=== PATIENT | female | born 1995 ===

== ENCOUNTER 2018-07-04 14:32 | Inpatient (IN) | payer OTHER ==
[2018-07-04 14:32] VITALS: BMI 29.1
--- NOTE | 2018-07-04 15:36 | C.PDOC ---
History Of Present Illness 22 y/o female brought by rapid response team stating patient had 2 seizures in the clinic. As per mother, patient had a cold, fever, chills, and cough 4 days ago. Mother states they were going to the clinic for a headache this morning when patient had the seizures. Reports that patient has an 8 year history of possible epilepsy and seizures, and has 3 seizures per week that would last 2-3 minutes. As per mother, patient has been compliant with her medications. Patient appears confused in ER as she tries to take off her robe and requesting to go home. Time Seen by Provider: 07/04/18 15:04 Chief Complaint (Nursing): Seizure History Per: Family History/Exam Limitations: clinical condition Recent Seizure Activity Began: Just Before Arrival Number Of Seizures: Multiple Past Medical History Reviewed: Historical Data, Nursing Documentation, Vital Signs Vital Signs: Last Vital Signs Temp 98.4 F 07/04/18 15:27 Pulse 76 07/04/18 14:37 Resp 20 07/04/18 14:37 BP 118/69 07/04/18 14:37 Pulse Ox 100 07/04/18 14:37 - Medical History PMH: Asthma, Seizures Family History: States: No Known Family Hx - Social History Hx Tobacco Use: No Hx Alcohol Use: No Hx Substance Use: No - Immunization History Hx Tetanus Toxoid Vaccination: No Hx Influenza Vaccination: Yes Hx Pneumococcal Vaccination: Yes Review Of Systems Except As Marked, All Systems Reviewed And Found Negative. Neurological: Positive for: Seizures Physical Exam - Physical Exam Appears: Non-toxic, No Acute Distress Skin: Warm, Dry Head: Atraumatic, Normacephalic Eye(s): bilateral: Normal Inspection Oral Mucosa: Moist Neck: Supple Cardiovascular: Rhythm Regular, No Murmur Respiratory: Normal Breath Sounds, No Rales, No Rhonchi, No Wheezing Gastrointestinal/Abdominal: Soft, No Tenderness Extremity: Bilateral: Atraumatic, Normal Color And Temperature, Normal ROM Neurological/Psych: Oriented x3, Normal Speech ED Course And Treatment - Laboratory Results Result Diagrams: 07/04/18 15:37 07/04/18 15:37 O2 Sat by Pulse Oximetry: 100 (RA) Pulse Ox Interpretation: Normal - CT Scan/US Head CT Other Rad Studies (CT/US): Read By Radiologist, Radiology Report Reviewed CT/US Interpretation: FINDINGS: HEMORRHAGE: No intracranial hemorrhage. BRAIN: No mass effect or edema. Brown-white matter differentiation appears intact. Please note that MRI with diffusion imaging is more sensitive in the detection of acute ischemic event. VENTRICLES: No hydrocephalus. CALVARIUM: Unremarkable. PARANASAL SINUSES: Mucosal thickening of the left maxillary sinus. Mild mucosal thickening of the ethmoid air cells. MASTOID AIR CELLS: Unremarkable as visualized. No inflammatory changes. OTHER FINDINGS: None. IMPRESSION: No acute intracranial pathology identified. Mucosal thickening of the left maxillary sinus. Medical Decision Making Medical Decision Making: Impression: Plan: --Head CT --Bloodwork --UA --Ativan 2mg IV patient with multiple seizures today patient admitted to med surg observation potline monitor neurology for consult. Disposition Discussed With : Idalia Gonzalez Doctor Will See Patient In The: Hospital Counseled Patient/Family Regarding: Studies Performed, Diagnosis - Disposition Disposition: HOSPITALIZED Disposition Time: 18:17 Condition: FAIR Forms: [facility] (Lithuanian) - Clinical Impression Clinical Impression: Seizure - Scribe Statement The provider has reviewed the documentation as recorded by the aKvin Beck Provider Attestation: All medical record entries made by the Venusibroel were at my direction and personally dictated by me. I have reviewed the chart and agree that the record accurately reflects my personal performance of the history, physical exam, medical decision making, and the department course for this patient. I have also personally directed, reviewed, and agree with the discharge instructions and disposition.
[2018-07-04 15:41] LABS: BASO % 0.5 % (0.0-2.0); EOS % 0.6 % (0.0-4.0); HEMOGLOBIN 12.8 g/dL (11.0-16.0); LYMPH # 0.9 K/uL (1.0-4.3); MEAN CELL VOLUME 87.3 fL (81.0-99.0); MEAN CORPUSCULAR HEMOGLOBIN 29.3 pg (27.0-31.0); MEAN CORPUSCULAR HGB CONC 33.5 g/dL (33.0-37.0); MEAN PLATELET VOLUME 9.5 fL (7.2-11.7); MONO # 0.5 K/uL (0.0-0.8); MONO % 10.9 % (0.0-10.0); NEUT # 2.9 K/uL (1.8-7.0); NRBC % 0.1 % (0.0-2.0); RBC 4.38 Mil/uL (3.80-5.20); RED CELL DISTRIBUTION WIDTH 13.6 % (11.5-14.5); WHITE BLOOD COUNT 4.3 K/uL (4.8-10.8)
--- NOTE | 2018-07-04 15:50 | PCM.RRT ---
GAS CONTROLLER Nurses Assessment - Situation Date: 07/04/18 Time GAS CONTROLLER was called: 15:07 GAS CONTROLLER Location:: [facility] GAS CONTROLLER Reason for Call: Change in Mental Status (Seizure ) GAS CONTROLLER Called By: RN - IV IV Inserted during GAS CONTROLLER?: No - Respiratory GAS CONTROLLER Delivery Method: Nasal Cannula @L/min (2 L / min) Oxygen Flow Rate: 2 Received Nebulizer Treatments: No Was the Patient Ventilated with Bag/Mask 100% O2?: Yes (When ) Secretions Suctioned?: No Was the Patient Intubated?: No Was the Patient Placed on a Ventilator?: No CPR started during GAS CONTROLLER?: No - Vital Signs Vital Signs: 138/69, pulse 80s, pulse o2 100% on non rebreather, 14 RR once patient arrived to ED. I.Reason for GAS CONTROLLER - A) Acute Change in Patient: (Select all that apply): Acute change in mental status (Seizure ) - Neurological Status (Select all that apply): Confused, Lethargic, Weakness - Respiratory Oxygen Delivery Method: Nasal Cannula @L/min, Non Rebreather @% - Constitutional Additional Comments: Actively seizing - Head Head Exam: ATRAUMATIC, NORMAL INSPECTION, NORMOCEPHALIC - Eyes Additional Comments: eyes rolled back - Respiratory Exam Respiratory Exam: Clear to Ausculation Bilateral - Cardiovascular Exam Cardiovascular Exam: Tachycardia - GI/Abdominal Exam GI & Abdominal Exam: Soft, Normal Bowel Sounds. absent: Distended, Tenderness - Neurological Exam Neurological Exam: Alert, Awake. absent: Oriented x3 Additional exam: patient fluctuating between seizures and post -ictal state - Extremities Exam Extremities Exam: Normal Inspection. 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 As per mother, patient has been having 1-2 seizures per week for the past 2-3 months. On , she had 3 consecutive seizures. As per the patient's mother, she has been coming down with URI symptoms for the past 4 days. In the [facility], patient had 4 witnessed seizures without any bowel or urinary incontinence. Upon arrival, patient already had 2 seizures witnessed by staff. When I arrived, the next two seizures lasted less than 1 minute each, with the patient's eyes rolling back. 2mg IM Ativan was given and she was transferred to the ED. In the elevator, patient had a 3rd seizure. In the ED, patient had 4th seizure which broke before Ativan was given. Patient then had 5th seizure, Ativan 2mg IVP was given. Patient had total 6 seizures with total 4 mg Ativan. Patient is compliant with all her medications and follows up with Dr. Rodriguez as instructed. ROS unattainable as patient is in post-ictal state. Medical release form was signed by mother due to patient's current post-ictal state to request records from Neurologist Dr. Rodriguez's office. PMHx: Epilepsy (diagnosed 7-8 years ago) PSHx: Denied Meds: Seroquel 50mg PO QHS, Trazodone 100mg PO daily, Trilepta 150mg PO BID, Keppra 1000mg PO BID (confirmed with pharmacy) All: NKDA SHx: Unable to access due to post-ictal state FHx: Father and Grandmother (maternal) suffer from seizure disorder [facility]: [phone] Neuro: Dr. Rodriguez [phone]
--- NOTE | 2018-07-04 16:16 | CT ---
Date of service: 07/04/2018 PROCEDURE: CT HEAD WITHOUT CONTRAST. HISTORY: seizure COMPARISON: MRI brain without contrast performed 04/25/18 TECHNIQUE: Axial computed tomography images were obtained through the head/brain without intravenous contrast. Radiation dose: Total exam DLP = 862.84 mGy-cm. This CT exam was performed using one or more of the following dose reduction techniques: Automated exposure control, adjustment of the mA and/or kV according to patient size, and/or use of iterative reconstruction technique. FINDINGS: HEMORRHAGE: No intracranial hemorrhage. BRAIN: No mass effect or edema. Brown-white matter differentiation appears intact. Please note that MRI with diffusion imaging is more sensitive in the detection of acute ischemic event. VENTRICLES: No hydrocephalus. CALVARIUM: Unremarkable. PARANASAL SINUSES: Mucosal thickening of the left maxillary sinus. Mild mucosal thickening of the ethmoid air cells. MASTOID AIR CELLS: Unremarkable as visualized. No inflammatory changes. OTHER FINDINGS: None. IMPRESSION: No acute intracranial pathology identified. Mucosal thickening of the left maxillary sinus.
[2018-07-04 16:49] LABS: ALB/GLOB RATIO 1.6 (1.0-2.1); ALBUMIN 4.6 g/dL (3.5-5.0); ALT/SGPT 25 U/L (9-52); AST/SGOT 28 U/L (14-36); BLOOD UREA NITROGEN 5 mg/dL (7-17); CALCIUM 9.1 mg/dl (8.6-10.4); GFR NON-AFRICAN AMERICAN > 60
--- NOTE | 2018-07-04 21:17 | CP.PCM.HP ---
History of Present Illness - History of Present Illness History of Present Illness: PT CAME TO ED FOR BAYLEE GRIFFITHS HAS COLD AND FEVER FOR FEW DAYS AT HOME Present on Admission - Present on Admission Any Indicators Present on Admission: No Review of Systems - Review of Systems Systems not reviewed;Unavailable: Acuity of Condition - Constitutional Constitutional: Fever - EENT Eyes: As Per HPI Ears: As Per HPI Nose/Mouth/Throat: As Per HPI - Breasts Breasts: As Per HPI - Cardiovascular Cardiovascular: As Per HPI - Respiratory Respiratory: As Per HPI - Gastrointestinal Gastrointestinal: As Per HPI - Genitourinary Genitourinary: As Per HPI - Reproductive: Female Reproductive:Female: As Per HPI - Menstruation Menstruation: As Per HPI - Musculoskeletal Musculoskeletal: As Per HPI - Integumentary Integumentary: As Per HPI - Neurological Additional comments: SEISERS - Psychiatric Psychiatric: As Per HPI - Endocrine Endocrine: As Per HPI - Hematologic/Lymphatic Hematologic: As Per HPI Past Patient History - Past Social History Smoking Status: Light Smoker < 10 Cigarettes Daily - PULMONARY Hx Asthma: Yes - NEUROLOGICAL Hx Seizures: Yes - PSYCHIATRIC Hx Substance Use: No Meds Allergies/Adverse Reactions: Allergies Allergy/AdvReac Type Severity Reaction Status Date / Time No Known Allergies Allergy Verified 07/04/18 14:40 Physical Exam - Constitutional Appears: In Acute Distress - Head Exam Head Exam: ATRAUMATIC - Eye Exam Eye Exam: Normal appearance Pupil Exam: NORMAL ACCOMODATION - ENT Exam ENT Exam: Mucous Membranes Moist - Neck Exam Neck exam: Positive for: Normal Inspection - Respiratory Exam Respiratory Exam: Clear to Auscultation Bilateral - Cardiovascular Exam Cardiovascular Exam: REGULAR RHYTHM - GI/Abdominal Exam GI & Abdominal Exam: Normal Bowel Sounds - Extremities Exam Extremities exam: Positive for: normal inspection - Back Exam Back exam: NORMAL INSPECTION Results - Vital Signs Recent Vital Signs: Last Vital Signs Temp 98.4 F 07/04/18 17:48 Pulse 96 H 07/04/18 18:51 Resp 18 07/04/18 18:51 BP 132/79 07/04/18 18:51 Pulse Ox 99 07/04/18 18:51 - Labs Result Diagrams: 07/04/18 15:37 07/04/18 15:37 Labs: Laboratory Results - last 24 hr 07/04/18 07/04/18 07/04/18 14:34 15:37 15:37 WBC 4.3 L RBC 4.38 Hgb 12.8 Hct 38.3 MCV 87.3 MCH 29.3 MCHC 33.5 RDW 13.6 Plt Count 231 MPV 9.5 Neut % (Auto) 67.0 Lymph % (Auto) 21.0 [place] % (Auto) 10.9 H Eos % (Auto) 0.6 Baso % (Auto) 0.5 Neut # (Auto) 2.9 Lymph # (Auto) 0.9 L [place] # (Auto) 0.5 Eos # (Auto) 0.0 Baso # (Auto) 0.0 Sodium 137 Potassium 4.0 Chloride 103 Carbon Dioxide 24 Anion Gap 14 BUN 5 L Creatinine 0.6 L Est GFR ( Amer) > 60 Est GFR (Non-Af Amer) > 60 POC Glucose (mg/dL) 88 Random Glucose 82 D Calcium 9.1 Total Bilirubin 0.4 AST 28 ALT 25 Alkaline Phosphatase 80 Total Creatine Kinase 112 Total Protein 7.5 Albumin 4.6 Globulin 2.9 Albumin/Globulin Ratio 1.6 Assessment & Plan - Assessment and Plan (Free Text) Assessment: BAYLEE GRIFFITHS Plan: PER ORDERS - Date & Time Date: 07/04/18 Time: 21:18
[2018-07-05] MEDS ORDERED: Albuterol HFA 90 mcg/actuation (8 g) IH PRN ×2 (03:09→07:15)
[2018-07-05 03:11] LABS: BARBITURATES, UR NEGATIVE (NEGATIVE); BENZODIAZEPINES, UR NEGATIVE (NEGATIVE); OPIATES, UR NEGATIVE (NEGATIVE); PHENCYCLIDINE, UR NEGATIVE (NEGATIVE)
[2018-07-05 03:15] LABS: SQUAMOUS EPITHIAL 34 /hpf (0-5); URINE BACTERIA RARE (<OCC); URINE BILIRUBIN NEGATIVE (NEGATIVE); URINE BLOOD NEGATIVE (NEGATIVE); URINE CLARITY Hazy (Clear); URINE COLOR Yellow (YELLOW); URINE GLUCOSE (UA) NORMAL (Normal); URINE LEUKOCYTE ESTERASE NEG Leu/uL (Negative); URINE PROTEIN NEGATIVE (NEGATIVE); URINE UROBILINOGEN NORMAL mg/dL (0.2-1.0)
[2018-07-05] MEDS ORDERED: levETIRAcetam 1,500 MG in Sodium Chloride 0.9% 100 ML IVPB ONE (06:20)
--- NOTE | 2018-07-05 09:39 | CP.PCM.CON ---
<Sylvia Woods AlfreditoJose F - Last Filed: 07/05/18 18:33> History of Present Illness - History of Present Illness History of Present Illness: Neurology Consult Note for Dr. 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 As per mother, patient has been having 1-2 seizures per week for the past 2-3 months. On , she had 3 consecutive seizures. As per the patient's mother, she has been coming down with URI symptoms for the past 4 days. Per the mother any time the patient has any kind of stress it results in her daughter having seizures. She states her out patient neurologist has run many different tests and they do no know why she continues to have seizures. In the [facility], patient had 4 witnessed seizures without any bowel or urinary incontinence.The seizures lasted less than 1 minute each, with the patient's eyes rolling back. Since the patient has been admitted she has has a total of 15 seizures per the mother at bedside. When I went to evaluate the patient ROS unattainable as patient is in post-ictal state. Patient was given Ativan and Keppra at bedside prior. PMD: Dr. Prieto Neurologist: Dr. Rodriguez Past Medical History: Per medical records patient was diagnosed with Epilepsy (diagnosed 7-8 years ago) - patient's mom disagrees and states Dr. Rodriguez stated she was never confirmed to have Epilepsy; Bipolar; Asthma Past Surgical History: Throat cyst removed; Surgical at 5 months 2016 Medications: Seroquel 50mg PO QHS, Trazodone 100mg PO daily, Trilepta 150mg PO BID, Keppra 1000mg PO BID Allergies: NKDA Family History: Father and Grandmother (maternal) suffer from seizure disorder Social History: per e-clinical works patient Smokes 5 cigarettes per day; Marijuana; denies alcohol; Lives with mom Past Patient History - Past Social History Smoking Status: Light Smoker < 10 Cigarettes Daily - PULMONARY Hx Asthma: Yes - NEUROLOGICAL Hx Seizures: Yes - PSYCHIATRIC Hx Substance Use: No Meds Allergies/Adverse Reactions: Allergies Allergy/AdvReac Type Severity Reaction Status Date / Time No Known Allergies Allergy Verified 07/04/18 14:40 - Medications Medications: Current Medications Albuterol (Ventolin Hfa 90 Mcg/Actuation (8 G)) 1 puff IH RQ6 PRN PRN Reason: Shortness of Breath Levetiracetam (Keppra) 1,000 mg PO BID [facility] Last Admin: 07/05/18 09:26 Dose: 1,000 mg Lorazepam (Ativan) 2 mg IVP Q6H PRN PRN Reason: Seizure activity Last Admin: 07/05/18 07:55 Dose: 2 mg Oxcarbazepine (Trileptal) 150 mg PO BID [facility] Last Admin: 07/05/18 09:26 Dose: 150 mg Quetiapine Fumarate (Seroquel) 50 mg PO HS [facility] Last Admin: 07/05/18 05:45 Dose: Not Given Trazodone HCl (Desyrel) 100 mg PO DAILY [facility] Last Admin: 07/05/18 09:28 Dose: Not Given Results - Vital Signs Recent Vital Signs: Last Vital Signs Temp 97.6 F 07/05/18 08:32 Pulse 82 07/05/18 08:32 Resp 18 07/05/18 08:32 BP 111/76 07/05/18 08:32 Pulse Ox 99 07/05/18 09:01 - Labs Result Diagrams: 07/04/18 15:37 07/04/18 15:37 Labs: Laboratory Results - last 24 hr 07/04/18 07/04/18 07/04/18 14:34 15:37 15:37 WBC 4.3 L RBC 4.38 Hgb 12.8 Hct 38.3 MCV 87.3 MCH 29.3 MCHC 33.5 RDW 13.6 Plt Count 231 MPV 9.5 Neut % (Auto) 67.0 Lymph % (Auto) 21.0 [place] % (Auto) 10.9 H Eos % (Auto) 0.6 Baso % (Auto) 0.5 Neut # (Auto) 2.9 Lymph # (Auto) 0.9 L [place] # (Auto) 0.5 Eos # (Auto) 0.0 Baso # (Auto) 0.0 Sodium 137 Potassium 4.0 Chloride 103 Carbon Dioxide 24 Anion Gap 14 BUN 5 L Creatinine 0.6 L Est GFR ( Amer) > 60 Est GFR (Non-Af Amer) > 60 POC Glucose (mg/dL) 88 Random Glucose 82 D Calcium 9.1 Total Bilirubin 0.4 AST 28 ALT 25 Alkaline Phosphatase 80 Total Creatine Kinase 112 Total Protein 7.5 Albumin 4.6 Globulin 2.9 Albumin/Globulin Ratio 1.6 Urine Color Urine Clarity Urine pH Ur Specific [place] Urine Protein Urine Glucose (UA) Urine Ketones Urine Blood Urine Nitrate Urine Bilirubin Urine Urobilinogen Ur Leukocyte Esterase Urine WBC (Auto) Urine RBC (Auto) Ur Squamous Epith Cells Urine Bacteria Urine HCG, Qual Urine Opiates Screen Urine Methadone Screen Ur Barbiturates Screen Ur Phencyclidine Scrn Ur Amphetamines Screen U Benzodiazepines Scrn U Oth Cocaine Metabols U Cannabinoids Screen 07/05/18 07/05/18 07/05/18 02:47 02:47 02:47 WBC RBC Hgb Hct MCV MCH MCHC RDW Plt Count MPV Neut % (Auto) Lymph % (Auto) [place] % (Auto) Eos % (Auto) Baso % (Auto) Neut # (Auto) Lymph # (Auto) [place] # (Auto) Eos # (Auto) Baso # (Auto) Sodium Potassium Chloride Carbon Dioxide Anion Gap BUN Creatinine Est GFR ( Amer) Est GFR (Non-Af Amer) POC Glucose (mg/dL) Random Glucose Calcium Total Bilirubin AST ALT Alkaline Phosphatase Total Creatine Kinase Total Protein Albumin Globulin Albumin/Globulin Ratio Urine Color Yellow Urine Clarity Hazy Urine pH 6.0 Ur Specific [place] 1.017 Urine Protein Negative Urine Glucose (UA) Normal Urine Ketones 1+ H Urine Blood Negative Urine Nitrate Negative Urine Bilirubin Negative Urine Urobilinogen Normal Ur Leukocyte Esterase Neg Urine WBC (Auto) 3 Urine RBC (Auto) 1 Ur Squamous Epith Cells 34 H Urine Bacteria Rare Urine HCG, Qual Negative Urine Opiates Screen Negative Urine Methadone Screen Negative Ur Barbiturates Screen Negative Ur Phencyclidine Scrn Negative Ur Amphetamines Screen Negative U Benzodiazepines Scrn Negative U Oth Cocaine Metabols Negative U Cannabinoids Screen Positive H Assessment & Plan - Assessment and Plan (Free Text) Assessment: 22 year old female with 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 Imaging: - Head CT (07/04/18): No acute intracranial pathology. Mucosal thickening of the left maxillary sinus. - Brain MRI (04/25/18): No acute intracranial abnormality. 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 - Seizure precaution; Ambulatory Precaution - f/u blood levels of Levetiracetam and Oxycarbazepine - Discontinued Keppra 07/05/17 - Increased Oxcarbazepine 300mg bid - Started Topamax 50mg daily - Ativan 2mg IV q6prn for seizures - f/u continuous EEG monitoring Case discussed with Dr. Gurvinder Woods PGY-2 <Jono Hollins - Last Filed: 07/08/18 13:58> Meds - Medications Medications: Current Medications Albuterol (Ventolin Hfa 90 Mcg/Actuation (8 G)) 1 puff IH RQ6 PRN PRN Reason: Shortness of Breath Guaifenesin (Robitussin) 100 mg PO Q4H PRN PRN Reason: Cough Lorazepam (Ativan) 2 mg IVP Q1 PRN PRN Reason: Seizure activity Lorazepam (Ativan) 1 mg PO Q6 PRN PRN Reason: Agitation Oxcarbazepine (Trileptal) 300 mg PO BID [facility] Last Admin: 07/08/18 10:01 Dose: 300 mg Quetiapine Fumarate (Seroquel) 50 mg PO [facility] Last Admin: 07/07/18 22:07 Dose: 50 mg Topiramate (Topamax) 50 mg PO DAILY [facility] Last Admin: 07/08/18 10:01 Dose: 50 mg Trazodone HCl (Desyrel) 100 mg PO [facility] Results - Vital Signs Recent Vital Signs: Last Vital Signs Temp 98.1 F 07/08/18 10:42 Pulse 85 07/08/18 10:42 Resp 20 07/08/18 10:42 BP 119/80 07/08/18 10:42 Pulse Ox 98 07/08/18 10:42 - Labs Result Diagrams: 07/08/18 10:29 07/08/18 10:29 Labs: Laboratory Results - last 24 hr 07/08/18 07/08/18 07/08/18 10:29 10:29 10:40 WBC 4.4 L RBC 4.72 Hgb 13.8 Hct 40.7 MCV 86.3 MCH 29.2 MCHC 33.9 RDW 13.3 Plt Count 258 MPV 9.0 Neut % (Auto) 67.3 Lymph % (Auto) 24.8 [place] % (Auto) 6.7 Eos % (Auto) 0.6 Baso % (Auto) 0.6 Neut # (Auto) 3.0 Lymph # (Auto) 1.1 [place] # (Auto) 0.3 Eos # (Auto) 0.0 Baso # (Auto) 0.0 Sodium 136 Potassium 3.9 Chloride 102 Carbon Dioxide 24 Anion Gap 14 BUN 13 Creatinine 0.8 Est GFR ( Amer) > 60 Est GFR (Non-Af Amer) > 60 Random Glucose 114 H Calcium 8.9 Phosphorus 3.5 Magnesium 2.0 Total Bilirubin 0.4 AST 34 ALT 27 Alkaline Phosphatase 71 Total Protein 7.5 Albumin 4.6 Globulin 2.9 Albumin/Globulin Ratio 1.6 Hepatitis A IgM Ab Negative Hep Bs Antigen Negative Hep B Core IgM Ab Negative Hepatitis C Antibody Negative Attending/Attestation - Attestation I have personally seen and examined this patient.: Yes I have fully participated in the care of the patient.: Yes I have reviewed all pertinent clinical information: Yes Notes (Text): I agree with the assessment and plan. There appears to be a psychogenic component. - Discontinued Kerosaliora 07/05/17 - Increased Oxcarbazepine 300mg bid - Started Topamax 50mg daily - Ativan 2mg IV q6prn for seizures - f/u continuous EEG monitoring
--- NOTE | 2018-07-05 12:44 | CP.PCM.PCO ---
Physician Communication Note - Physician Communication Note Physician Communication Note: Patient has been admitted to the [facility].
--- NOTE | 2018-07-05 13:58 | CP.PCM.PN ---
Subjective - Date & Time of Evaluation Date of Evaluation: 07/05/18 Time of Evaluation: 13:46 - Subjective Subjective: PGY-[address] Khan Patient is a 22 year old female with PMHx seizure disorder and bipolar disorder, who was admitted initially after SITE SURVEYOR was called for seizure activity in [facility]. Patient had multiple witnessed seizures in the clinic. Patient's mother states that patient stated she was feeling dizzy and mom noticed that she was staring into the distance and then began to have convulsions with teeth clenching and frothing at the mouth, but no incontinence of bowel or bladder. Per patient's mother, patient has had a history of seizures for 11 years, and they have never been adequately controlled. The mother does state that the patient tends to be easily agitated, and that her sei zures tend to be brought on by anxiety or emotional stress. Recently, the episodes have become more frequent, occurring once or twice weekly for the past few months. ROS unable to be obtained at this time as patient is post-ictal, but will follow up once patient is more arousable. Neuro and psych are on board with this case and are working on obtaining record of patient's psych meds from [facility]. Past Medical History: Per medical records patient was diagnosed with Epilepsy (diagnosed 7-8 years ago) - patient's mom disagrees and states Dr. Rodriguez stated she was never confirmed to have Epilepsy; Bipolar; Asthma Past Surgical History: Throat cyst removed; Surgical at 5 months 2016 Medications: Seroquel 50mg PO QHS, Trazodone 100mg PO daily, Trilepta 150mg PO BID, Keppra 1000mg PO BID Allergies: NKDA Family History: Father and Grandmother (maternal) suffer from seizure disorder Social History: per e-clinical works patient Smokes 5 cigarettes per day; Marijuana; denies alcohol; Lives with mom PMD: Dr. Prieto Neurologist: Dr. Rodriguez Objective - Vital Signs/Intake and Output Vital Signs (last 24 hours): Temp Pulse Resp BP Pulse Ox 97.6 F 82 19 107/52 L 96 07/05/18 08:32 07/05/18 13:04 07/05/18 13:04 07/05/18 13:04 07/05/18 13:04 - Medications Medications: Current Medications Albuterol (Ventolin Hfa 90 Mcg/Actuation (8 G)) 1 puff IH RQ6 PRN PRN Reason: Shortness of Breath Lorazepam (Ativan) 2 mg IVP Q4 PRN PRN Reason: Seizure activity Oxcarbazepine (Trileptal) 300 mg PO BID [facility] Quetiapine Fumarate (Seroquel) 50 mg PO HS [facility] Last Admin: 07/05/18 05:45 Dose: Not Given Topiramate (Topamax) 50 mg PO DAILY [facility] Trazodone HCl (Desyrel) 100 mg PO DAILY [facility] Last Admin: 07/05/18 09:28 Dose: Not Given - Labs Labs: 07/04/18 15:37 07/04/18 15:37 - Head Exam Head Exam: ATRAUMATIC, NORMAL INSPECTION - Eye Exam Eye Exam: EOMI, Normal appearance - ENT Exam ENT Exam: Mucous Membranes Moist - Respiratory Exam Respiratory Exam: Clear to Ausculation Bilateral, NORMAL BREATHING PATTERN. absent: Rhonchi, Wheezes - Cardiovascular Exam Cardiovascular Exam: REGULAR RHYTHM, +S1, +S2 - GI/Abdominal Exam GI & Abdominal Exam: Soft, Normal Bowel Sounds - Extremities Exam Extremities Exam: absent: Pedal Edema, Tenderness - Neurological Exam Additional comments: Patient sleeping, post-ictal - Psychiatric Exam Psychiatric exam: Agitated (Appeared anxious/agitated upon waking), Anxious - Skin Skin Exam: Dry, Intact Assessment and Plan - Assessment and Plan (Free Text) Assessment: Epilepsy vs. Pseudoseizures - Head CT (07/04/18): No acute intracranial pathology. Mucosal thickening of the left maxillary sinus. - Brain MRI (04/25/18): No acute intracranial abnormality. 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 -Neuro consulted, Dr. Hollins. Help appreciated. - Medications --Ativan 2mg Q4H prn --Oxacarbazepine 300mg PO BID --Seroquel 50mg PO HS --Topamax 50mg PO daily --Trazadone 100mg PO daily -Home Keppra was discontinued for agitation -CPK/prolactin - f/u -EEG - f/u Bipolar disorder - Psych consulted, Dr. Lebron - f/u recs --We will obtain list of psych meds from [facility] Asthma -Ventolin 1 puff Q6H prn Assessment/plan discussed with Dr. Erin Beaulieu, PGY-1
[2018-07-05 19:30] LABS: PROLACTIN 98.4 ng/mL (3.0-18.9)
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
[2018-07-07 11:25] LABS: BASO % 0.3 % (0.0-2.0); EOS % 0.4 % (0.0-4.0); LYMPH # 1.4 K/uL (1.0-4.3); LYMPH % 27.1 % (20.0-40.0); MEAN CELL VOLUME 86.9 fL (81.0-99.0); MEAN CORPUSCULAR HEMOGLOBIN 29.5 pg (27.0-31.0); MEAN PLATELET VOLUME 9.1 fL (7.2-11.7); MONO # 0.3 K/uL (0.0-0.8); MONO % 6.1 % (0.0-10.0); NEUT # 3.5 K/uL (1.8-7.0); NEUT % 66.1 % (50.0-75.0); RBC 4.75 Mil/uL (3.80-5.20); RED CELL DISTRIBUTION WIDTH 13.1 % (11.5-14.5); WHITE BLOOD COUNT 5.3 K/uL (4.8-10.8)
[2018-07-07 11:44] LABS: ALB/GLOB RATIO 1.5 (1.0-2.1); ALBUMIN 4.6 g/dL (3.5-5.0); ALT/SGPT 27 U/L (9-52); AST/SGOT 40 U/L (14-36); BLOOD UREA NITROGEN 16 mg/dL (7-17); GFR NON-AFRICAN AMERICAN > 60
--- NOTE | 2018-07-07 12:11 | PCM.PYCHPN ---
Psychiatric Progress Note - Psychiatric Progress Note Patient seen today, length of contact: 18 min Patient Chief Complaint: "tired" Problems Identified/Issues Discussed: Saw the pt and spoke to her mother too and her nurse, chart reviewed [place] sedated No SI, HI, del/solis No seizures NO agitation Meds to be adjusted Support and referral recom. given to mother Will follow Medication Change: Yes Medical Record Reviewed: Yes Mental Status Examination - Cognitive Function Orientation: Person, Place, Situation, Time Memory: Impaired Attention: Poor Concentration: Poor Association: WNL Fund of Knowledge: WNL - Mood Mood: Depressed, Anxious - Affect Affect: Constricted - Speech Speech: Slurred - Formal Thought Process Formal Thought Process: Paranoia - Suicidal Ideation Suicidal Ideation: No - Homicidal Ideation Homicidal Ideation: No Goal/Treatment Plan - Goal/Treatment Plan Need for Continued Stay: Other (medical) Progress Toward Problem(s) and Goals/Treatment Plan: Lower meds causing over-sedation Use prn ativan and haldol sparingly She may be having mixed seizures (pseudo and also epileptic), may benefit from video-monitored EEG.
--- NOTE | 2018-07-07 20:08 | CP.PCM.PN ---
<Anel Burks - Last Filed: 07/07/18 20:21> Subjective - Date & Time of Evaluation Date of Evaluation: 07/07/18 Time of Evaluation: 20:06 - Subjective Subjective: Medicine Progress Note - Dr Fox Mirza's service Patient seen and examined at bedside. [employer] was called early morning (07/06/18) for "seizure activity". She was given Hadol and Ativan at that time. Patient's mother is at the bedside. States that the patient has not had any seizures since then. Patient is currently somnolent and difficult to arise. Mom states that she has not had much of an appetite. Offers no other complaints at this time. Objective - Vital Signs/Intake and Output Vital Signs (last 24 hours): Temp Pulse Resp BP Pulse Ox 98.2 F 88 20 109/75 95 07/07/18 08:13 07/07/18 08:13 07/07/18 08:13 07/07/18 08:13 07/07/18 15:00 - Medications Medications: Current Medications Albuterol (Ventolin Hfa 90 Mcg/Actuation (8 G)) 1 puff IH RQ6 PRN PRN Reason: Shortness of Breath Lorazepam (Ativan) 2 mg IVP Q1 PRN PRN Reason: Seizure activity Lorazepam (Ativan) 1 mg PO Q6 PRN PRN Reason: Agitation Oxcarbazepine (Trileptal) 300 mg PO BID [facility] Last Admin: 07/07/18 18:14 Dose: 300 mg Quetiapine Fumarate (Seroquel) 50 mg PO HS [facility] Last Admin: 07/06/18 21:45 Dose: 50 mg Topiramate (Topamax) 50 mg PO DAILY [facility] Last Admin: 07/07/18 09:15 Dose: 50 mg Trazodone HCl (Desyrel) 100 mg PO DAILY [facility] Last Admin: 07/07/18 09:15 Dose: 100 mg - Labs Labs: 07/07/18 11:16 07/07/18 11:16 - Additional Findings Additional findings: - Constitutional Appears: Non-toxic, No Acute Distress, [place] sedated - Head Exam Head Exam: ATRAUMATIC, NORMOCEPHALIC - Eye Exam Eye Exam: EOMI, Normal appearance - ENT Exam ENT Exam: Mucous Membranes Moist - Respiratory Exam Respiratory Exam: Clear to Ausculation Bilateral, NORMAL BREATHING PATTERN. absent: Rhonchi, Wheezes - Cardiovascular Exam Cardiovascular Exam: REGULAR RHYTHM, +S1, +S2 - GI/Abdominal Exam GI & Abdominal Exam: Soft, Normal Bowel Sounds - Extremities Exam Extremities Exam: Normal Inspection. absent: Pedal Edema, Tenderness - Neurological Exam Additional comments: Patient asleep (overly sedated) - Psychiatric Exam Additional comments: Patient overly sedated - Skin Skin Exam: Dry, Intact Assessment and Plan - Assessment and Plan (Free Text) Assessment: Epilepsy vs. Pseudoseizures -Stable, afebrile -Patient initially refused video EEG, now amendable (will order for tomorrow morning 07/08/18) -Ativan 2mg Q1H prn seizure activity -Continue Oxacarbazepine 300mg PO BID (Per neuro, dose cannot be decreased as this is therapeutic dose) -Continue Topamax 50mg PO daily, Seroquel 50mg PO HS, Trazadone 100mg PO daily -Home Keppra was discontinued for agitation -CK 917, Prolactin 98.4 -UDS positive for cannabinoids -Seizure precaution; Fall Precautions -Neurology consulted, Dr. Hollins. Help appreciated. Imaging: - Head CT (07/04/18): No acute intracranial pathology. Mucosal thickening of the left maxillary sinus. - Brain MRI (04/25/18): No acute intracranial abnormality. 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 Bipolar disorder -Psych consulted, Dr. Lebron -We will verify list of psych meds from [facility] -Trileptal 300 mg p.o. daily Seroquel 50 mg po HS, Trazodone 100 mg p.o. nightly -CBT/Psychoeducation/Supportive therapy and group therapy -Haldol discontinued as patient is overly sedated -Ativan 1mg PO Q6H prn anxiety Asthma -Ventolin 1 puff Q6H prn Elevated AST -AST 40, likely due to medications -F/U hepatitis panel GI/DVT ppx: -No GI ppx indicated at this time -SCDs Plan discussed with Dr Fox Burks DO PGY-2 <Pete Mirza - Last Filed: 07/09/18 23:42> Objective - Vital Signs/Intake and Output Vital Signs (last 24 hours): Temp Pulse Resp BP Pulse Ox 98.5 F 88 18 102/67 99 07/09/18 10:40 07/09/18 16:20 07/09/18 10:40 07/09/18 10:40 07/09/18 10:40 - Labs Labs: 07/09/18 07:05 07/09/18 07:05 Attending/Attestation - Attestation I have personally seen and examined this patient.: Yes I have fully participated in the care of the patient.: Yes I have reviewed all pertinent clinical information, including history, physical exam and plan: Yes Notes (Text): 07/09/18 23:42 This is a late entry. Care of this patient was discussed in detail with resident Dr. Burks. Pete Mirza D.O.
[2018-07-08 10:33] LABS: BASO % 0.6 % (0.0-2.0); EOS % 0.6 % (0.0-4.0); HEMOGLOBIN 13.8 g/dL (11.0-16.0); LYMPH # 1.1 K/uL (1.0-4.3); LYMPH % 24.8 % (20.0-40.0); MEAN CELL VOLUME 86.3 fL (81.0-99.0); MEAN CORPUSCULAR HEMOGLOBIN 29.2 pg (27.0-31.0); MEAN CORPUSCULAR HGB CONC 33.9 g/dL (33.0-37.0); MONO # 0.3 K/uL (0.0-0.8); MONO % 6.7 % (0.0-10.0); NEUT % 67.3 % (50.0-75.0); NRBC % 0.1 % (0.0-2.0); RBC 4.72 Mil/uL (3.80-5.20); RED CELL DISTRIBUTION WIDTH 13.3 % (11.5-14.5); WHITE BLOOD COUNT 4.4 K/uL (4.8-10.8)
[2018-07-08 10:51] LABS: ALB/GLOB RATIO 1.6 (1.0-2.1); ALBUMIN 4.6 g/dL (3.5-5.0); ALT/SGPT 27 U/L (9-52); AST/SGOT 34 U/L (14-36); BLOOD UREA NITROGEN 13 mg/dL (7-17); CALCIUM 8.9 mg/dl (8.6-10.4); GFR NON-AFRICAN AMERICAN > 60
[2018-07-08 11:48] LABS: HEPATITIS B SURFACE AG Negative (NEGATIVE)
[2018-07-08 11:54] LABS: HEPATITIS A IGM NEGATIVE (NEGATIVE); HEPATITIS B CORE AB NEGATIVE (NEGATIVE)
[2018-07-08 12:06] LABS: HEPATITIS C ANTIBODY NEGATIVE (NEGATIVE)
--- NOTE | 2018-07-08 13:36 | CP.PCM.PN ---
<Anel Burks - Last Filed: 07/08/18 13:46> Subjective - Date & Time of Evaluation Date of Evaluation: 07/08/18 Time of Evaluation: 13:34 - Subjective Subjective: Medicine Progress Note - Dr Fox Mirza's service Patient seen and examined at bedside. Per nursing no acute events overnight. Patient's mother is at the bedside. Patient is actively coughing, reports having non-productive cough for a few days now. She is for video EEG today. Offers no other complaints at this time. Objective - Vital Signs/Intake and Output Vital Signs (last 24 hours): Temp Pulse Resp BP Pulse Ox 98.1 F 85 20 119/80 98 07/08/18 10:42 07/08/18 10:42 07/08/18 10:42 07/08/18 10:42 07/08/18 10:42 - Medications Medications: Current Medications Albuterol (Ventolin Hfa 90 Mcg/Actuation (8 G)) 1 puff IH RQ6 PRN PRN Reason: Shortness of Breath Lorazepam (Ativan) 2 mg IVP Q1 PRN PRN Reason: Seizure activity Lorazepam (Ativan) 1 mg PO Q6 PRN PRN Reason: Agitation Oxcarbazepine (Trileptal) 300 mg PO BID [facility] Last Admin: 07/08/18 10:01 Dose: 300 mg Quetiapine Fumarate (Seroquel) 50 mg PO [facility] Last Admin: 07/07/18 22:07 Dose: 50 mg Topiramate (Topamax) 50 mg PO DAILY [facility] Last Admin: 07/08/18 10:01 Dose: 50 mg Trazodone HCl (Desyrel) 100 mg PO [facility] - Labs Labs: 07/08/18 10:29 07/08/18 10:29 - Constitutional Appears: Non-toxic, No Acute Distress - Head Exam Head Exam: ATRAUMATIC, NORMAL INSPECTION, NORMOCEPHALIC - Eye Exam Eye Exam: EOMI, Normal appearance - ENT Exam ENT Exam: Mucous Membranes Moist - Respiratory Exam Respiratory Exam: Clear to Ausculation Bilateral, NORMAL BREATHING PATTERN. absent: Rales, Rhonchi, Wheezes - Cardiovascular Exam Cardiovascular Exam: REGULAR RHYTHM, +S1, +S2 - GI/Abdominal Exam GI & Abdominal Exam: Soft. absent: Guarding, Rigid, Tenderness - Neurological Exam Neurological Exam: Alert, Awake, Oriented x3 - Psychiatric Exam Psychiatric exam: Normal Affect, Normal Mood - Skin Skin Exam: Dry, Normal Color, Warm Assessment and Plan - Assessment and Plan (Free Text) Assessment: Epilepsy vs. Pseudoseizures -Stable, afebrile -Patient initially refused video EEG, now amendable -Continuous Video EEG x 24 hours (started this morning) -Ativan 2mg Q1H prn seizure activity -Continue Oxacarbazepine 300mg PO BID (Per neuro, dose cannot be decreased as this is therapeutic dose) -Continue Topamax 50mg PO daily, Seroquel 50mg PO HS, Trazadone 100mg PO daily -Home Keppra was discontinued for agitation -CK 917, Prolactin 98.4 -UDS positive for cannabinoids -Seizure precaution; Fall Precautions -Neurology consulted, Dr. Hollins. Help appreciated. Imaging: - Head CT (07/04/18): No acute intracranial pathology. Mucosal thickening of the left maxillary sinus. - Brain MRI (04/25/18): No acute intracranial abnormality. 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 Cough likely due to URI -Afebrile, no leukocytosis -We will start Robitussin 100mg Q4H prn cough Bipolar disorder -Psych consulted, Dr. Lebron -We will verify list of psych meds from [facility] -Trileptal 300 mg p.o. daily Seroquel 50 mg po HS, Trazodone 100 mg p.o. nightly -CBT/Psychoeducation/Supportive therapy and group therapy -Haldol discontinued as patient was overly sedated -Ativan 1mg PO Q6H prn anxiety Asthma -Ventolin 1 puff Q6H prn Elevated AST -LFTs normalized -Hepatitis panel is negative GI/DVT ppx: -No GI ppx indicated at this time -SCDs DISPO: Patient started Video EEG monitoring for 24 hours. We will have Neurology review the EEG. If medically stable at that time, we will have patient evaluated by psych for either inpatient psych admission or discharge home. Plan discussed with Dr Fox Burks DO PGY-2 <Pete Mirza - Last Filed: 07/09/18 23:42> Objective - Vital Signs/Intake and Output Vital Signs (last 24 hours): Temp Pulse Resp BP Pulse Ox 98.5 F 88 18 102/67 99 07/09/18 10:40 07/09/18 16:20 07/09/18 10:40 07/09/18 10:40 07/09/18 10:40 - Labs Labs: 07/09/18 07:05 07/09/18 07:05 Attending/Attestation - Attestation I have personally seen and examined this patient.: Yes I have fully participated in the care of the patient.: Yes I have reviewed all pertinent clinical information, including history, physical exam and plan: Yes Notes (Text): 07/09/18 23:42 This is a late entry. Care of this patient was discussed in detail with resident Dr. Burks. Pete Mirza D.O.
[2018-07-08] MEDS ORDERED: guaiFENesin 100 mg/5 ml Syrup UD PO PRN (13:43)
[2018-07-08 23:38] LABS: 10-HYDROXYCARBAZEPINE <1.0 mcg/mL (8.0-35.0)
[2018-07-09 07:29] LABS: BASO % 0.6 % (0.0-2.0); EOS # 0.1 K/uL (0.0-0.7); EOS % 1.3 % (0.0-4.0); HEMOGLOBIN 14.7 g/dL (11.0-16.0); LYMPH # 1.3 K/uL (1.0-4.3); LYMPH % 32.9 % (20.0-40.0); MEAN CORPUSCULAR HEMOGLOBIN 29.3 pg (27.0-31.0); MEAN CORPUSCULAR HGB CONC 33.7 g/dL (33.0-37.0); MEAN PLATELET VOLUME 8.7 fL (7.2-11.7); MONO # 0.3 K/uL (0.0-0.8); MONO % 6.6 % (0.0-10.0); NEUT # 2.3 K/uL (1.8-7.0); NEUT % 58.6 % (50.0-75.0); NRBC % 0.1 % (0.0-2.0); RBC 5.02 Mil/uL (3.80-5.20); RED CELL DISTRIBUTION WIDTH 13.5 % (11.5-14.5)
[2018-07-09 07:43] LABS: ALB/GLOB RATIO 1.5 (1.0-2.1); ALBUMIN 4.7 g/dL (3.5-5.0); ALT/SGPT 23 U/L (9-52); AST/SGOT 29 U/L (14-36); BLOOD UREA NITROGEN 11 mg/dL (7-17); CALCIUM 9.1 mg/dl (8.6-10.4); GFR NON-AFRICAN AMERICAN > 60
--- NOTE | 2018-07-09 08:18 | CP.PCM.PN ---
<Julio César Beaulieu - Last Filed: 07/09/18 13:38> Subjective - Date & Time of Evaluation Date of Evaluation: 07/09/18 Time of Evaluation: 08:18 - Subjective Subjective: PGY-[address] Jennifer Mirza Patient seen and examined at bedside. No acute events overnight. No agricultural consultant called over the weekend for seizure activity - patient finishing 24 hour video EEG monitoring this morning. Possible discharge today following video EEG. Update: DIRECTOR ACUTE called 09:05 this morning for reported seizure-like activity per mother. Patient also complaining of chest tightness. By the time we arrived at bedside, patient was awake and alert, speaking in full sentences, cooperating and following commands. Patient reports no loss of consciousness, incontinence of bowel or bladder, or tongue biting. She was hooked up to EEG leads during ep isode. We will follow Neuro recommendations for further intervention and/or possible discharge to home vs inpatient psych. Objective - Vital Signs/Intake and Output Vital Signs (last 24 hours): Temp Pulse Resp BP Pulse Ox 98.3 F 106 H 20 106/72 98 07/09/18 08:00 07/09/18 08:00 07/09/18 08:00 07/09/18 08:00 07/09/18 08:00 - Medications Medications: Current Medications Albuterol (Ventolin Hfa 90 Mcg/Actuation (8 G)) 1 puff IH RQ6 PRN PRN Reason: Shortness of Breath Guaifenesin (Robitussin) 100 mg PO Q4H PRN PRN Reason: Cough Lorazepam (Ativan) 2 mg IVP Q1 PRN PRN Reason: Seizure activity Last Admin: 07/08/18 14:54 Dose: 2 mg Lorazepam (Ativan) 1 mg PO Q6 PRN PRN Reason: Agitation Oxcarbazepine (Trileptal) 300 mg PO BID [facility] Last Admin: 07/08/18 17:23 Dose: 300 mg Quetiapine Fumarate (Seroquel) 50 mg PO [facility] Last Admin: 07/08/18 21:25 Dose: Not Given Topiramate (Topamax) 50 mg PO DAILY [facility] Last Admin: 07/08/18 10:01 Dose: 50 mg Trazodone HCl (Desyrel) 100 mg PO [facility] Last Admin: 07/08/18 21:24 Dose: Not Given - Labs Labs: 07/09/18 07:05 07/09/18 07:05 - Constitutional Appears: Non-toxic, No Acute Distress - Head Exam Head Exam: ATRAUMATIC, NORMOCEPHALIC - Eye Exam Eye Exam: EOMI - ENT Exam ENT Exam: Mucous Membranes Moist - Respiratory Exam Respiratory Exam: Clear to Ausculation Bilateral. absent: Rhonchi, Wheezes - Cardiovascular Exam Cardiovascular Exam: REGULAR RHYTHM, +S1, +S2 - GI/Abdominal Exam GI & Abdominal Exam: Soft, Normal Bowel Sounds. absent: Tenderness - Extremities Exam Extremities Exam: Normal Inspection. absent: Pedal Edema, Tenderness - Neurological Exam Neurological Exam: Alert, Awake, Oriented x3 - Psychiatric Exam Psychiatric exam: Normal Affect, Normal Mood - Skin Skin Exam: Dry, Intact Assessment and Plan - Assessment and Plan (Free Text) Assessment: Epilepsy vs. Pseudoseizures -Stable, afebrile -Patient initially refused video EEG, now amendable -Continuous Video EEG x 24 hours to finish this morning 07/09 at 10:30 -Ativan 2mg Q1H prn seizure activity -Continue Oxacarbazepine 300mg PO BID (Per neuro, dose cannot be decreased as this is therapeutic dose) -Continue Topamax 50mg PO daily, Seroquel 50mg PO HS, Trazadone 100mg PO daily -Home Keppra was discontinued for agitation -CK 917, Prolactin 98.4 -UDS positive for cannabinoids -Seizure precaution; Fall Precautions -Neurology consulted, Dr. Hollins. Help appreciated. Imaging: - Head CT (07/04/18): No acute intracranial pathology. Mucosal thickening of the left maxillary sinus. - Brain MRI (04/25/18): No acute intracranial abnormality. 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 Cough likely due to URI -Afebrile, no leukocytosis -We will start Robitussin 100mg Q4H prn cough Bipolar disorder -Psych consulted, Dr. Lebron -We will verify list of psych meds from [facility] -Trileptal 300 mg p.o. daily Seroquel 50 mg po HS, Trazodone 100 mg p.o. nightly -CBT/Psychoeducation/Supportive therapy and group therapy -Haldol discontinued as patient was overly sedated -Ativan 1mg PO Q6H prn anxiety Asthma -Ventolin 1 puff Q6H prn Elevated AST -LFTs normalized -Hepatitis panel is negative GI/DVT ppx: -No GI ppx indicated at this time -SCDs DISPO: Patient started Video EEG monitoring for 24 hours. We will have Neurology review the EEG. If medically stable at that time, we will have patient evaluated by psych for either inpatient psych admission or discharge home. Plan discussed with Dr Jennifer Beaulieu, PGY-1 <Pete Mirza - Last Filed: 07/09/18 23:40> Objective - Vital Signs/Intake and Output Vital Signs (last 24 hours): Temp Pulse Resp BP Pulse Ox 98.5 F 88 18 102/67 99 07/09/18 10:40 07/09/18 16:20 07/09/18 10:40 07/09/18 10:40 07/09/18 10:40 - Labs Labs: 07/09/18 07:05 07/09/18 07:05 Attending/Attestation - Attestation I have personally seen and examined this patient.: Yes I have fully participated in the care of the patient.: Yes I have reviewed all pertinent clinical information, including history, physical exam and plan: Yes Notes (Text): 07/09/18 23:39 Care of this patient was gone over with resident Dr. Christofer Mirza D.O.
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
--- NOTE | 2018-07-09 09:17 | PCM.RRT ---
<Julisa Calhoun Sergio - Last Filed: 07/09/18 09:42> MANAGEMENT PROFESSIONAL Nurses Assessment - Situation Date: 07/09/18 Time MANAGEMENT PROFESSIONAL was called: 09:05 MANAGEMENT PROFESSIONAL Responder Arrival Time:: 09:05 MANAGEMENT PROFESSIONAL Location:: Med/Surg Room Number: 558-A MANAGEMENT PROFESSIONAL Reason for Call: Change in Mental Status (Seizure-like activity ) MANAGEMENT PROFESSIONAL Called By: RN - IV IV Inserted during MANAGEMENT PROFESSIONAL?: No - Respiratory MANAGEMENT PROFESSIONAL Delivery Method: Nasal Cannula @L/min Oxygen Flow Rate: 3 Received Nebulizer Treatments: No Was the Patient Ventilated with Bag/Mask 100% O2?: No (When ) Secretions Suctioned?: No Was the Patient Intubated?: No Was the Patient Placed on a Ventilator?: No - Medication Medications Administered During MANAGEMENT PROFESSIONAL: ativan - Diagnostic Test Ordered EKG: Yes Chest X-Ray: Yes CT Scan: No - Stat Labs Ordered MANAGEMENT PROFESSIONAL Stat Labs Ordered: TROPONIN CPR started during MANAGEMENT PROFESSIONAL?: No - Vital Signs Vital Signs: Rapid Response Vital Sign Pulse Rate 120 - Irena Coma Scale Coma Scale Eye Opening: Spontaneous Coma Scale Motor: Obeys Commands Movement Coma Scale Verbal: Confused/able to answer Coma Scale Total: 14 - Time MANAGEMENT PROFESSIONAL Ended Time MANAGEMENT PROFESSIONAL Ended: 05:21 - Recommendations 5) MANAGEMENT PROFESSIONAL Level of Care Recommendations: Remain in current setting Notifications: Attending Physician, Family or Designated Caregiver I.Reason for MANAGEMENT PROFESSIONAL - A) Acute Change in Patient: (Select all that apply): Staff member or family is worried about patient, Acute change in mental status (seizure like activitiy) - Neurological Status (Select all that apply): Alert, Responsive - Respiratory Oxygen Delivery Method: Nasal Cannula @L/min Oxygen Flow Rate: 3 - Constitutional Appears: Non-toxic, No Acute Distress - Head Head Exam: ATRAUMATIC, NORMAL INSPECTION, NORMOCEPHALIC Additional Comments: no tongue biting - Eyes Eye Exam: EOMI, Normal appearance - Respiratory Exam Respiratory Exam: Clear to Ausculation Bilateral, NORMAL BREATHING PATTERN - Cardiovascular Exam Cardiovascular Exam: Tachycardia, +S1, +S2 - Neurological Exam Neurological Exam: Alert, Awake - Extremities Exam Extremities Exam: Normal Inspection. absent: Pedal Edema Plan - Assessment of Findings&Treatment Plan Rapid Response called for 22 year old Female after mother witnessed a few seconds of seizure like activity. Of note patient was complaining of chest tightness prior to seizure activity. Patient is currently on video EEG monitoring. Patient is at baseline upon arrival. Glucose found to be 117. Vitals: O2: 95 at 3L , BP: 117/73, P: 109, T: 98.1 EKG and Cxray ordered and have no acute findings. Troponin ordered. Ativan 2mg IV given. <Pete Mirza - Last Filed: 07/09/18 23:43> MANAGEMENT PROFESSIONAL Nurses Assessment - Vital Signs Vital Signs: Rapid Response Vital Sign Blood Pressure 117/73 Pulse Rate 109 Respiratory Rate 18 Temperature 98.1 F Oxygen Saturation 95 - Vital Signs at end of MANAGEMENT PROFESSIONAL Vital Signs at end of MANAGEMENT PROFESSIONAL: Rapid Response End Vital Sign Blood Pressure 102/67 Pulse Rate 111 Respiratory Rate 18 Temperature 98.5 F O2 Sat by Pulse Oximetry 99 Attending/Attestation - Attestation I have personally seen and examined this patient.: Yes I have fully participated in the care of the patient.: Yes I have reviewed all pertinent clinical information, including history, physical exam and plan: Yes Notes (Text): 07/09/18 23:43 Care of this patient during MANAGEMENT PROFESSIONAL was done in coordination with resident. Pete Mirza D.O.
--- NOTE | 2018-07-09 10:13 | RAD ---
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 FINDINGS: LUNGS: No active pulmonary disease. PLEURA: No significant pleural effusion identified, no pneumothorax apparent. CARDIOVASCULAR: No aortic atherosclerotic calcification present. Normal cardiac size. No pulmonary vascular congestion. OSSEOUS STRUCTURES: No significant abnormalities. VISUALIZED UPPER ABDOMEN: Normal. OTHER FINDINGS: None. IMPRESSION: No active disease.
[2018-07-09 11:26] VITALS: BP 102/67; RESP 18; TEMP 98.5; O2SAT 99
[2018-07-09 16:29] VITALS: PULSE 88
--- NOTE | 2018-07-10 09:31 | PCM.VEEG ---
Video EEG - Procedure Start Date: 07/08/18 Start Time: 11:25 End Date: 07/09/18 End Time: 13:55 Technical Summary: DATA ACQUISITION: This was a multichannel inpatient video-EEG, a minimum of 22 channels were uti lized, performed in accordance with recommendations specified by the [place] [employer] Society (Alfredito Cooley et al. ACNS Guideline 1: Minimum Technical Requirements for Performing Clinical Electroencephalography. Journal of Clinical Neurophysiology 2016;33:303-7). The 10-20 electrode placement system was utilized in accordance with guidelines detailed by the International Federation of Clinical Neurophysiology (Selam Phillips et al. The Ten-Twenty Electrode System of the International Federation. Recommendations for the Practice of Clinical Neurophysiology: Guidelines of the International Federation of Clinical Physiology 1999; EEG Suppl. 52.). DATA REVIEW / SPIKE DETECTION / DIGITAL ANALYSIS: The entire EEG was scanned and reviewed. Synchronized audio and video recording were reviewed at the time of each alarm and whenever an abnormality or suspicious activity was noted. The entire recording was analyzed utilizing an automated digital spike and seizure analysis program and all automatic spike and seizure detections were manually reviewed. A compressed spectral array was displayed and reviewed alongside the raw EEG tracings. In addition, further analysis of the EEG was performed when abnormalities were identified, including montage changes, dipole source localization, and frequency band identification. Video portion of the study is necessary to correlate abnormal EEG activity with clinical behavior. This study was attended 24 hours per day. - Interpretation Description of the study: Indication; 22 y/o woman with paroxysmal events, seizures vs Non epileptic events. . EEG Finding during wakefulness: During active states, the EEG was characterized by 14-25 Hz, 15-30 uV activity bilaterally in fronto-central regions. Resting wakefulness was characterized by a symmetric posterior dominant rhythm of 9 to 10 Hz, 30-50 uV, which was reactive to eye opening and closing. Drowsiness was associated with slow roving eye movements, slowing and fragmentation of the posterior dominant rhythm, and bilateral 4-7 Hz, 40-70 uV theta activity, sometimes with a shifting predominance. EEG Finding during sleep: Light sleep was recorded and was characterized by fronto-central slowing at 5-7 H, 50-125 uV, sharp central vertex waves, bilateral sleep spindles, and K- complexes; shifting asymmetries were evident. Deeper stages of sleep were recorded and were characterized an increasing frequency of 1-4 Hz, 50-100 uV delta activity. REM sleep was also recorded and was characterized by mixed frequency (3-15 Hz) low voltage (< 20 uV) activity with clusters of rapid horizontal and vertical eye movements. There were no significant asymmetries noted during sleep. Interictal non-epileptiform abnormalities: None Interictal epileptiform abnormalities: None Ictal epileptiform abnormalities: Events; There were multiple Pb activations; 07/08/18 at 15;01 Clinically; she is in bed, she becomes less responsive and develops right arm tremors EEG; normal awake architecture 07/09/18 at 9;18 Clinically; she is sitting in bed becomes less responsive she falls backwards, then develops right arm tremors. EEG normal awake architecture. There were multiple otehr PB activations that there was no noticeable abnormal semiology on video, the patients less resposnve EEG showed normal awake architecture during them. - Impression Impression: This is a normal video-EEG monitoring study. There was no evidence of spikes, sharp waves, or organized electrographic seizure activity. Multiple non-epileptic events were recorded. INTERPRETATION: The findings are consistent with non epileptic events, most likely psychogenic non-epileptic events, these needs to be correlated clinically, other potential etiologies for this episodes need to be ruled out, like metabolic abnormalities (hypoglycemia)
== END 2018-07-09 18:01 | disposition home or self-care (01) | DRG 425 ==
LOC: C.ER 14:32 → C.9E 18:16 → C.6T 07-05 17:26 → C.9E 07-05 17:40 → C.5S 07-05 22:57 → OBSVTOIN 07-08 15:23
PROVIDERS: ADMIT Internal Medicine; ATTEND Internal Medicine
DX: F44.5 Conversion disorder with seizures or convulsions (principal); F31.64 Bipolar disorder, current episode mixed, severe, with psychotic features; J06.9 Acute upper respiratory infection, unspecified; J45.909 Unspecified asthma, uncomplicated; F17.210 Nicotine dependence, cigarettes, uncomplicated; F12.90 Cannabis use, unspecified, uncomplicated; Z86.73 Personal history of transient ischemic attack (TIA), and cerebral infarction without residual deficits; Z79.899 Other long term (current) drug therapy; Z82.0 Family history of epilepsy and other diseases of the nervous system

== ENCOUNTER 2018-07-20 09:42 | Outpatient (CLI) | payer OTHER | END 2018-07-20 09:43 | disposition home or self-care (01) | LOC: C.MRIC 09:42 ==

== ENCOUNTER 2018-11-12 10:00 | Outpatient (CLI) | payer OTHER | END 2018-11-12 10:01 | disposition home or self-care (01) | LOC: C.USIC 10:00 | DX: Z33.1 Pregnant state, incidental (principal) ==